=== PATIENT | male | born 1975 | race Caucasian/White ===

== ENCOUNTER → 2018-05-29 09:27 | Outpatient (CLI) | payer OTHER, SELFPAY ==
[2018-05-29 11:27] LABS: ALB/GLOB Ratio 0.9 RATIO (0.9-2.4); AST(SGOT) 22 U/L (15-37); Alanine Aminotransfer ALT/SGPT 56 U/L (16-61); Albumin, Serum 3.6 g/dL (3.2-5.0); Alkaline Phosphatase 81 U/L (45-117); Anion Gap 7 (5-15); BUN 13 mg/dL (7-18); BUN/Creat Ratio 15.6 RATIO (10-20); Calcium,Total 8.3 mg/dL (8.5-10.1); Chloride 107 mmol/L (98-107); Cholesterol 136 mg/dL (200); Creatinine, Serum 0.84 mg/dL (0.70-1.30); EST Glomerular Filtration Rate 107 mL/min (>60); Est Glom Filt Rate - Afr Amer 130 mL/min (>60); Glucose 95 mg/dL (74-106); High Density Lipoprotein 42 mg/dL; Potassium 4.4 mmol/L (3.5-5.1); Protein, Total 7.6 g/dL (6.4-8.2); Sodium Level 141 mmol/L (136-145); Triglycerides 57 mg/dL; Very Low Density Lipoprotein 11 mg/dL (5-40)
== END ==
PROVIDERS: Family Provider Family Medicine; PCP Family Medicine; Visit Provider Family Medicine
DX: R73.01 Impaired fasting glucose (principal)
CPT/HCPCS: 36415; 80053; 80061

== ENCOUNTER → 2018-12-08 13:49 | Outpatient (CLI) | payer OTHER, SELFPAY ==
[2018-12-08 15:12] LABS: Absolute Lymphocyte Count 3.22 X10^3/ul (0.83-4.51); Absolute Neutrophil Count 6.6 X10^3/uL (2.0-7.7); Basophil# 0.06 X10^3/uL; Basophil% 0.5 % (0-1); Eosinophil# 0.19 X10^3/uL; Eosinophils% 1.7 % (0-5); Hemoglobin 14.5 g/dl (13.0-16.5); Lymphocyte # 3.22 X10^3/ul (4.0); Lymphocyte % 29.2 % (19-41); Mean Corpuscular Hgb 29.3 pg (27.0-32.0); Mean Corpuscular Volume 88.9 fL (80-94); Mean Platelet Vol. 9.6 fl (6.2-12.0); Monocyte# 0.93 X10^3/uL; Monocyte% 8.4 % (0-10); Neutrophil # 6.61 X10^3/uL (2.7-7.7); Platelet Count 246 K/mm3 (150-450); RBC Distribution Width CV 14.2 % (11.6-14.6); RBC Distribution Width SD 46.1 fl (35.1-43.9); Red Blood Count 4.95 M/mm3 (4.6-6.2)
[2018-12-08 15:13] LABS: POSITIVE COUNT NO; POSITIVE DIFFERENTIAL NO; POSITIVE MORPHOLOGY NO
[2018-12-08 15:33] LABS: Vitamin B12 664 pg/mL (211-911)
[2018-12-08 15:44] LABS: Anion Gap 5 (5-15); BUN 14 mg/dL (7-18); Calcium,Total 8.8 mg/dL (8.5-10.1); Chloride 109 mmol/L (98-107); Creatinine, Serum 0.88 mg/dL (0.70-1.30); EST Glomerular Filtration Rate 101 mL/min (>60); Est Glom Filt Rate - Afr Amer 123 mL/min (>60); Glucose 88 mg/dL (74-106); Potassium 4.5 mmol/L (3.5-5.1); Sodium Level 142 mmol/L (136-145)
== END ==
PROVIDERS: Family Provider Family Medicine; PCP Family Medicine; Referring Provider Family Medicine; Visit Provider Family Medicine
DX: I10 Essential (primary) hypertension (principal); R53.83 Other fatigue
CPT/HCPCS: 36415; 80048; 82306; 82607; 84403; 84443; 85025

== ENCOUNTER → 2019-06-08 14:04 | Outpatient (CLI) | payer OTHER, SELFPAY ==
[2019-06-08 16:10] LABS: Vitamin D,25 Hydroxy 61.9 ng/mL (29.95-100.01)
== END ==
PROVIDERS: Family Provider Family Medicine; PCP Family Medicine; Referring Provider Family Medicine; Visit Provider Family Medicine
DX: E55.9 Vitamin D deficiency, unspecified (principal)
CPT/HCPCS: 36415; 82306

== ENCOUNTER → 2020-06-06 14:15 | Outpatient (CLI) | payer OTHER, SELFPAY ==
[2020-06-06 18:10] LABS: Vitamin D,25 Hydroxy 45.9 ng/mL
[2020-06-06 18:19] LABS: ALB/GLOB Ratio 0.9 RATIO (0.9-2.4); AST(SGOT) 28 U/L (15-37); Alanine Aminotransfer ALT/SGPT 75 U/L (16-61); Albumin, Serum 3.7 g/dL (3.2-5.0); Alkaline Phosphatase 82 U/L (45-117); Anion Gap 8 (5-15); BUN 14 mg/dL (7-18); Calcium,Total 8.9 mg/dL (8.5-10.1); Chloride 103 mmol/L (98-107); Cholesterol 130 mg/dL (200); Creatinine, Serum 0.82 mg/dL (0.70-1.30); EST Glomerular Filtration Rate 108 mL/min (>60); Est Glom Filt Rate - Afr Amer 131 mL/min (>60); Globulin 4.2 g/dL (2.2-4.2); Glucose 84 mg/dL (74-106); High Density Lipoprotein 52 mg/dL; Protein, Total 7.9 g/dL (6.4-8.2); Sodium Level 137 mmol/L (136-145); Triglycerides 79 mg/dL; Very Low Density Lipoprotein 16 mg/dL (5-40)
== END ==
PROVIDERS: PCP Family Medicine; Referring Provider Family Medicine; Visit Provider Family Medicine
DX: I10 Essential (primary) hypertension (principal); E55.9 Vitamin D deficiency, unspecified
CPT/HCPCS: 36415; 80053; 80061; 82306

== ENCOUNTER 2020-07-15 16:49 | Emergency (ER) | payer OTHER, SELFPAY ==
[2020-07-15 16:50] VITALS: BP 150/84; PULSE 90; RESP 17; TEMP 36.6; O2SAT 99; BMI 36.2
--- NOTE | 2020-07-15 17:01 | RAD_ITS ---
STUDY: X-RAY - RIGHT HAND REASON FOR EXAM: Male, 45 years old. fall, pain TECHNIQUE: 3 view(s) of the hand. COMPARISON: None. FINDINGS: Normal radiocarpal articulation. Normal distal radioulnar joint. Normal visualized carpal bones. Normal carpal articulations Normal carpometacarpal articulation of the thumb. Normal second through fifth carpometacarpal joints. Normal metacarpi. Normal metacarpophalangeal joint of the thumb. Normal interphalangeal joint of the thumb. Normal proximal and distal phalanges of the thumb. Normal metacarpophalangeal joints of the second through fifth fingers. Normal proximal and distal interphalangeal joints of the second through fifth fingers. Normal phalanges of the second through fifth fingers. The soft tissue structures are unremarkable. RAD/Hand Min 3 Views IMPRESSION: Normal x-ray examination of the hand. Electronically Signed: Juanpablo Douglas, at 17:46 EST Tel , Service support ,
[2020-07-15] MEDS: Acetaminophen 500 MG Tablet 1000 MG PO (17:15)
--- NOTE | 2020-07-15 17:35 | RAD_ITS ---
STUDY: X-RAY - RIGHT RADIUS AND ULNA REASON FOR EXAM: Male, 45 years old. Fall trauma pain TECHNIQUE: 2 view(s) of the forearm. COMPARISON: None. FINDINGS: Radius and ulna are intact and located. Mineralization is normal. Soft tissues are unremarkable. RAD/Forearm 2 Views IMPRESSION: 1. Unremarkable forearm. Electronically Signed: Juanpablo Douglas, at 18:14 EST Tel , Service support ,
--- NOTE | 2020-07-15 17:55 | ED.VISSUMM ---
- ER Visit Summary Date of Service: 07/15/20 Chief Complaint: Laceration History of Present Illness: The patient is a [address] Smith. He reports that just prior to coming emergency department he with carrying a piece of wood with nails in it. He lost his balance and fell approximately 2 feet and suffered a laceration to his right hand. He is right-hand dominant. He reports he has a sharp pain Zeta 10 at worst and 4-10 currently. Is worsened by movement of his hand and relieved by rest. He denies any blow to the head or loss of consciousness. No neck, back, shoulder pain. No hip pain. Physical Examination: Vitals: Stable. Afebrile. Neck: No vertebral tenderness. Full ROM without difficulty. Cleared by NEXUS criteria. Back: No vertebral tenderness. General: A&O x 3. NAD. Cardiovascular exam: Regular rate and rhythm, no murmur, rub or gallop. Respiratory exam: Chest nontender. No crepitus. Clear to auscultation bilaterally. No wheezes or stridor. Abdominal exam: Soft, nontender, nondistended, normal bowel sounds. No pain in RUQ or LUQ specifically. No peritoneal signs. Extremity: Mild tenderness palpation of the anterior surface of his right distal radius. There is no deformity, soft tissue swelling, or contusion. He is 1.5 cm irregular laceration over the thenar eminence that extends to saw subcutaneous fat only. There is no surrounding erythema or hematoma. No active bleeding. He is neuro vas intact distal this. Test Results: X-ray of his right hand and forearm are negative. Emergency Department Course and Treatment: Patient was given Tylenol for pain. I had a prolonged discussion with him about treatment options. He is opted to let this heal by secondary intention. I think that is a reasonable course of action. Was cleansed and a dressing was placed. Treatment Plan: Patient will be discharged with wound care instructions. Instructed to follow-up with his primary care physician 1 week if not improving. Return to the emergency department for any worsening symptoms. Disposition: To home in improved and stable condition. Impression: 1. Laceration right hand, 1.5 cm, not repaired. 2. Fall. This note was generated with [employer]ring [employer]ation software. It may contain incorrect words, spelling, and punctuation that were not noted in review of the chart prior to signing ED Disposition - Plan for ED Patient: Instructions: ED Wound Care Referrals: Lazaro Santamaria MD [Primary Care Provider] - 1 Week if not improving
[2020-07-15 18:24] VITALS: RESP 18
== END 2020-07-15 18:24 | disposition home or self-care (01) ==
PROVIDERS: Emergency Provider Emergency Medicine; PCP Family Medicine
DX: S61.411A Laceration without foreign body of right hand, initial encounter (principal); W17.89XA Other fall from one level to another, initial encounter; Y93.89 Activity, other specified; Y92.9 Unspecified place or not applicable; Y99.9 Unspecified external cause status; W45.8XXA Other foreign body or object entering through skin, initial encounter; I10 Essential (primary) hypertension; Z79.899 Other long term (current) drug therapy
CPT/HCPCS: 73090; 73130; 99282

== ENCOUNTER → 2021-03-15 14:09 | Outpatient (CLI) | payer BC, SELFPAY ==
[2021-03-15 21:02] LABS: Anion Gap 9 (5-15); BUN 16 mg/dL (7-18); BUN/Creat Ratio 18.7 RATIO (10-20); Chloride 106 mmol/L (98-107); Cholesterol 138 mg/dL (200); Creatinine, Serum 0.86 mg/dL (0.70-1.30); EST Glomerular Filtration Rate 103 mL/min (>60); Est Glom Filt Rate - Afr Amer 125 mL/min (>60); Glucose 82 mg/dL (74-106); High Density Lipoprotein 46 mg/dL; Potassium 3.9 mmol/L (3.5-5.1); Sodium Level 139 mmol/L (136-145); Triglycerides 62 mg/dL; Very Low Density Lipoprotein 12 mg/dL (5-40)
[2021-03-15 21:27] LABS: Vitamin D,25 Hydroxy 49.4 ng/mL
== END ==
PROVIDERS: PCP Family Medicine; Referring Provider Family Medicine; Visit Provider Family Medicine
DX: Z13.1 Encounter for screening for diabetes mellitus (principal); Z13.220 Encounter for screening for lipoid disorders; E55.9 Vitamin D deficiency, unspecified
CPT/HCPCS: 36415; 80048; 80061; 82306

== ENCOUNTER → 2022-04-30 | Outpatient (CLI) | payer BC, SELFPAY ==
[2022-04-30 16:08] LABS: ALB/GLOB Ratio 0.8 RATIO (0.9-2.4); AST(SGOT) 19 U/L (15-37); Alanine Aminotransfer ALT/SGPT 61 U/L (16-61); Albumin, Serum 3.5 g/dL (3.2-5.0); Alkaline Phosphatase 74 U/L (45-117); Anion Gap 7 (5-15); BUN 13 mg/dL (7-18); BUN/Creat Ratio 15.4 RATIO (10-20); Chloride 107 mmol/L (98-107); Cholesterol 114 mg/dL (200); Creatinine, Serum 0.84 mg/dL (0.70-1.30); EST Glomerular Filtration Rate 104 mL/min (>60); Est Glom Filt Rate - Afr Amer 126 mL/min (>60); Globulin 4.2 g/dL (2.2-4.2); Glucose 89 mg/dL (74-106); High Density Lipoprotein 45 mg/dL; Magnesium 2.2 mg/dL (1.6-2.6); Potassium 4.3 mmol/L (3.5-5.1); Protein, Total 7.7 g/dL (6.4-8.2); Sodium Level 141 mmol/L (136-145); Triglycerides 68 mg/dL; Very Low Density Lipoprotein 14 mg/dL (5-40)
== END | disposition home or self-care (01) ==
LOC: MFPLAB 13:44
PROVIDERS: PCP Family Medicine; Visit Provider Family Medicine
DX: R73.01 Impaired fasting glucose (principal); I48.91 Unspecified atrial fibrillation
CPT/HCPCS: 36415; 80053; 80061; 83735; 84443

== ENCOUNTER → 2022-07-24 | Outpatient (CLI) | payer BC, SELFPAY | END | disposition home or self-care (01) | PROVIDERS: PCP Family Medicine; Visit Provider Family Medicine | DX: J02.0 Streptococcal pharyngitis (principal) | CPT/HCPCS: 87070; 87077 ==

== ENCOUNTER 2022-09-09 07:36 | Day surgery (SDC) | payer BC, SELFPAY ==
[2022-09-09] VITALS (7 sets, daily range): BP systolic 99–133; BP diastolic 51–77; PULSE 65–77; RESP 16–18; TEMP 36.4–37.3; O2SAT 95–100; BMI 35.9
[2022-09-09] MEDS: Lactated Ringers 1,000 ML 15 ML IV (08:07)
--- NOTE | 2022-09-09 09:00 | COLBX_PTH ---
PATIENT: MYA JENKINS LOC: EN U#:[id number] AGE/SX: 47/M ROOM: RE09/09/[address]: Dr. Melina Rehman MD : 1975 BED: DIS: 09/09/2022 SPEC #: [id number] RECD: 09/09/22 11:03 STATUS: SAVANNA CHELSEA #: [id number] JUAN: 09/09/22 09:[address]: Melina Rehman DEPT: SURGICAL PATHOLOGY RECD BY: Celina Lepe ENTERED: 09/09/22 13:23 SP TYPE: COLON BX OTHR DR: Dr. Jimmie Santamaria MD Tissues: Sigmoid colon biopsy Procedures: Surgery Specimen Level IV HEADER OPERATION: Colonoscopy ? open access (MAC), polypectomy PRE-OP DIAGNOSIS: Screening, umbilical hernia TISSUE SUBMITTED: Sigmoid polyp at 33 cm (1 x 1 cm) MICROSCOPIC DIAGNOSIS Sigmoid colon polyp at 33 cm, polypectomy: Tubular adenoma. See comment. AM:rg 09/10/2022 COMMENT The stalk margin is free of adenomatous change. MICROSCOPIC DESCRIPTION Slides are reviewed. GROSS DESCRIPTION Received in fixative is one container labeled with the patient's name and designated sigmoid polyp at 33 cm. The specimen consists of a pink-red polyp measuring 1 x 0.9 x 0.5 cm. The presumed base is inked. Pedicle measures 0.5 cm in length and 0.5 cm in diameter. The polyp is bisected and submitted entirely in one cassette. / SJ:keven 09/09/2022 TC:1 CPT: 70398
--- NOTE | 2022-09-09 09:26 | HP.PCM_ITS ---
[facility] - General General Date of Admission: 09/09/22 HPI Narrative MYA JENKINS, is a 47 M who presents for screening colonoscopy. Patient never had previous colonoscopy. Patient denies any family history of colon cancer. Patient has bowel moods daily denies any blood. Patient denies any current abdominal pain/nausea/vomiting/reflux. [facility] Medical History (Updated 09/09/22 @ 09:[address] Melina Rehman MD) Afib Alcohol use Back pain Cardiology follow-up encounter CPAP (continuous positive airway pressure) dependence History of echocardiogram History of edema HTN (hypertension) Reducible umbilical hernia Shortness of breath on exertion Syncope Vertigo Wears glasses Home Medications lisinopril 10 mg tablet 10 mg PO QHS 07/15/20 [History Last Taken Unknown] metoprolol tartrate 25 mg tablet 25 mg PO DAILY 07/15/20 [History Last Taken 09/09/22 05:30] aspirin 81 mg tablet,delayed release 81 mg PO DAILY 07/16/22 [History Last Taken Unknown] cholecalciferol (vitamin D3) 50 mcg (2,000 unit) capsule 50 mcg PO DAILY 07/16/22 [History Last Taken 09/09/22 05:30] Allergy/AdvReac Type Severity Reaction Status Date / Time No Known Allergies Allergy Verified 09/09/22 08:01 Family History (Updated 07/16/22 @ 10:25 by Lenora Adorno) Grandfather Prostate cancer Skin cancer Myocardial infarction Father History of mitral valve repair Afib Diabetes Mother Arrhythmia Arthritis Surgical History (Updated 09/04/22 @ 11:43 by Preethi Coy) History of wisdom tooth extraction Personal history of prior ablation treatment Social History (Updated 07/16/22 @ 10:28 by Lenora Adorno) household members: spouse 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 current occupation: [employer], [employer] Smoking Status: Never smoker what type of physical activity do you participate in: other details: Active on farm and work Past Medical/Surgical History Planned Operation Planned Operative Procedure/s: CSCOPE OA Previous Hospitalizations/Surgeries HX Hospitalizations: No Any Problems With Anesthesia: No You/Your Family Experience Fever (Hyperthermia) With Anes: No Cholinesterase deficiency: No Cardiovascular Hx Hypertension: Yes (CONTROLLED WITH MED) Respiratory Hx Chronic Obstructive Pulmonary Disease (COPD): No Hx Asthma: No Hx Emphysema: No Hx Sleep Apnea: Yes CPAP: Yes BIPAP: No Hx Respiratory Tract Infection/Cold (presently): No Result (for STOP score): Positive Smoking Status: Never smoker Neurological Does patient have nerve stimulator: No Blood Disorder Hx High Cholesterol: Yes Reproduction : No Endocrine Hx Diabetes: No Miscellaneous Recent Exposure to Contagious Disease: No Allergies No Known Allergies Allergy (Verified 09/09/22 08:01) Discharge Is Pt Admitted From a Long-Term, or a Senior Living: No After D/C, Where Do you Plan to Go: Return Home Vital Signs Vital Signs Vital Signs: 09/09/22 08:03 09/09/22 08:03 Temperature 97.6 F L Temperature Source Temporal Pulse Rate 69 Respiratory Rate 18 Respiratory Pattern Normal Blood Pressure 133/77 H Blood Pressure Mean 95 Blood Pressure Source Monitor Blood Pressure Position Sitting Blood Pressure Location Right Arm Pulse Ox 100 Oxygen Delivery Method Room Air Weight Weight: 257 lb 15.053 oz Body Mass Index (BMI) 35.9 Physical Exam Const alert, oriented x3 and no apparent distress HEENT normocephalic and head/scalp atraumatic Resp normal respiratory effort Cardio regular rate GI soft to palpation and non-tender; Negative for non-distended Palpation: hernia umbilical (Umbilical, tender, did not attempt to reduce); Negative for guarding Extremity no clubbing, cyanosis or edema Neuro CN's II-XII intact bilaterally Psych mental status grossly normal Assessment & Plan Assessment/Plan (1) Encounter for screening for malignant neoplasm of colon: (2) Umbilical hernia without mention of obstruction or gangrene: Surgery Risks - Colonoscopy Risks Include but are not Limited To: Risks include but are not limited to: Bleeding, perforation requiring further surgery, inability to complete colonoscopy requiring barium enema.
--- NOTE | 2022-09-09 10:24 | OP.COLON_ITS ---
Patient Name: Alo Clayton Procedure Date: 09/09/2022 9:29 AM Date of : 1975 Age: 47 Procedure: Colonoscopy Indications: Screening for colorectal malignant neoplasm Providers: Mleina Rehman MD Medicines: Monitored Anesthesia Care Patient Profile: This is a 47 year old male. Last Colonoscopy: none. The patient's first colonoscopy is today. Complications: No immediate complications. Procedure: Pre-Anesthesia Assessment: - Prior to the procedure, a History and Physical was performed, and patient medications and allergies were reviewed. The patient's tolerance of previous anesthesia was also reviewed. The risks and benefits of the procedure and the sedation options and risks were discussed with the patient. All questions were answered, and informed consent was obtained. Prior Anticoagulants: The patient has taken no previous anticoagulant or antiplatelet agents. ASA Grade Assessment: Per anesthesia. After reviewing the risks and benefits, the patient was deemed in satisfactory condition to undergo the procedure. After I obtained informed consent, the scope was passed under direct vision. Throughout the procedure, the patient's blood pressure, pulse, and oxygen saturations were monitored continuously. The Colonoscope was introduced through the anus and advanced to the cecum, identified by appendiceal orifice and ileocecal valve. The colonoscopy was performed without difficulty. The patient tolerated the procedure well. The quality of the bowel preparation was good. Scope In: 9:41:41 AM Scope Withdrawal Time 0 hours 22 minutes 59 seconds Scope Out: 10:12:24 AM Total Procedure Duration Time 0 hours 30 minutes 43 seconds Findings: The perianal and digital rectal examinations were normal. A 15 mm polyp was found in the sigmoid colon at 33cm with normal appearing stalk. The polyp was pedunculated. The polyp was removed with a hot snare. Resection and retrieval were complete. Area was successfully injected with 1 mL Jennie ink for tattooing. The exam was otherwise without abnormality on direct and retroflexion views. Impression: - One 15 mm polyp in the sigmoid colon, removed with a hot snare. Resected and retrieved. Injected. - The examination was otherwise normal on direct and retroflexion views. Recommendation: - Discharge patient to home. - Resume previous diet. - Continue present medications. - Await pathology results. - Repeat colonoscopy 1-2 years for surveillance based on pathology results. Procedure Code(s): --- Professional --- 31089, PT, Colonoscopy, flexible; with removal of tumor(s), polyp(s), or other lesion(s) by snare technique 16975, Colonoscopy, flexible; with directed submucosal injection(s), any substance Diagnosis Code(s): --- Professional --- Z12.11, Encounter for screening for malignant neoplasm of colon D12.5, Benign neoplasm of sigmoid colon CPT copyright 2017 [employer]. All rights reserved. The codes documented in this report are preliminary and upon orthopedic coder review may be revised to meet current compliance requirements. MD Melina Mccain MD 09/09/2022 10:24:18 AM This report has been signed electronically. Number of Addenda: 0 Note Initiated On: 09/09/2022 9:29 AM
--- NOTE | 2022-09-09 10:25 | OP.CCLET_ITS ---
09/09/2022 Lazaro Santamaria [address] [place] [address] Re : Colonoscopy procedure for Alo Clayton Dear Dr. Santamaria This procedure was performed on Friday, September 09, 2022. My impressions and recommendations are as follows: Impressions : - One 15 mm polyp in the sigmoid colon, removed with a hot snare. Resected and retrieved. Injected. - The examination was otherwise normal on direct and retroflexion views. Recommendations : - Discharge patient to home. - Resume previous diet. - Continue present medications. - Await pathology results. - Repeat colonoscopy 1-2 years for surveillance based on pathology results. My findings are described in the full procedure note, which is enclosed. If I can be of further assistance, please feel free to contact me at Doctor phone number(s): , Work: . Sincerely, MD Melina Mccain MD 09/09/2022 10:24:18 AM This report has been signed electronically.
== END 2022-09-09 10:58 | disposition home or self-care (01) ==
LOC: EN 07:38 → AC 07:41
PROVIDERS: PCP Family Medicine; Referring Provider Surgery; Visit Provider Surgery
PROC: 0DJD8ZZ Inspection of Lower Intestinal Tract, Via Natural or Artificial Opening Endoscopic (ICD-10-PCS; CPT 45378; principal; 2022-09-09 08:55)
DX: Z12.11 Encounter for screening for malignant neoplasm of colon (principal); I48.91 Unspecified atrial fibrillation; K42.9 Umbilical hernia without obstruction or gangrene; I10 Essential (primary) hypertension; D12.5 Benign neoplasm of sigmoid colon; Z79.899 Other long term (current) drug therapy; Z79.82 Long term (current) use of aspirin
CPT/HCPCS: 45385; 45381; 88305; J7120; A4648; J2405

== ENCOUNTER → 2023-03-20 | Outpatient (CLI) | payer BC, SELFPAY ==
[2023-03-20 18:54] LABS: ALB/GLOB Ratio 0.9 RATIO (0.9-2.4); AST(SGOT) 25 U/L (15-37); Alanine Aminotransfer ALT/SGPT 67 U/L (16-61); Albumin, Serum 3.6 g/dL (3.2-5.0); Alkaline Phosphatase 77 U/L (45-117); Anion Gap 6 (5-15); BUN 13 mg/dL (7-18); BUN/Creat Ratio 14.3 RATIO (10-20); Calcium,Total 9.1 mg/dL (8.5-10.1); Chloride 108 mmol/L (98-107); Cholesterol 135 mg/dL (200); Creatinine, Serum 0.91 mg/dL (0.70-1.30); EST Glomerular Filtration Rate 95 mL/min (>60); Est Glom Filt Rate - Afr Amer 115 mL/min (>60); Globulin 4.2 g/dL (2.2-4.2); Glucose 94 mg/dL (74-106); High Density Lipoprotein 54 mg/dL; Potassium 4.2 mmol/L (3.5-5.1); Protein, Total 7.8 g/dL (6.4-8.2); Sodium Level 139 mmol/L (136-145); Triglycerides 64 mg/dL; Very Low Density Lipoprotein 13 mg/dL (5-40)
== END | disposition home or self-care (01) ==
LOC: MFPLAB 14:56
PROVIDERS: PCP Family Medicine; Visit Provider Family Medicine
DX: R73.01 Impaired fasting glucose (principal)
CPT/HCPCS: 36415; 80053; 80061; 83036

== ENCOUNTER → 2023-09-10 | Outpatient (CLI) | payer BC, SELFPAY ==
[2023-09-10 13:48] LABS: Bacteria 0 SEEN /hpf (None Seen); Mucous, Urine 0 SEEN /hpf (<or=2+); Red Blood Cells-Urine 0 SEEN /hpf (0-5); Squamous Epithelial Cells - UA 0 SEEN /hpf (0-5); White Blood Cells 0 SEEN /hpf (0-5)
--- OUTSIDE RECORDS SUMMARY | 2023-09-10 14:07 | XMS RPT_ITS | CCD ---
Author Name Unknown Address [email or web address] [place] [address] Organization [facility] Care Team Providers Care General Farmworker Name Role Phone Jimmie Tabares Unavailable Keira Orozco Unavailable Unavailable Hina COWART, Adrien Gu Primary Care Provider Adrien Tabares MD Primary Care Provider ADRIEN TABARES Primary Care Unavailabl e ADRIEN TABARES Primary Care Unavailabl e Medications Current Medications Medication Drug Class(es) Dates Sig (Normalized) Sig (Original) amoxicillin 500 mg oral tablet (3 sources) Penicillin-class Antibacterial Start: 06-16-2022 End: 06-26-2022 take 1 tablet by mouth twice daily Amoxicillin 500 mg tablet Take 1 tablet by mouth twice daily for 10 days. 20 tablet 0 06/16/2022 06/26/2022 Active Completed/Discontinued Medications Medication Drug Class(es) Dates Sig (Normalized) Sig (Original) lisinopril 10 mg oral tablet (3 sources) Angiotensin Converting Enzyme Inhibitor lisinopril (ZESTRIL, PRINIVIL) 10 mg tablet Take 10 mg by mouth. 0 Active Problems Problem Classification Problem Date Documented Da te Episodic/Chronic Other upper respiratory infections (4 sources) Acute sinusitis; Translations: [Acute sinusitis, unspecified] 11-28-2021 Episodic Otitis media and related conditions (1 source) Acute suppurative otitis media without spontaneous rupture of ear drum; Translations: [Acute suppurative otitis media without spontaneous rupture of ear drum, right ear] Episodic Unclassified (2 sources) SINUS SORE THROAT CONGESTED 11-28-2021 Results Test Name Value Interpretation Reference Range Facil ity Vital Signs Date Time Vital Sign Value Performing Clinician Facility 06-16-2022 10:58-0400 Body temperature 98.2 [degF] Nafisa Welch APRN.SOLUTION SPECIALIST Work Phone: [facility] 06-16-2022 10:58-0400 Body weight 117.48 kg Nafisa Welch APRN.SOLUTION SPECIALIST Work Phone: [facility] 06-16-2022 10:58-0400 Diastolic blood pressure 92 mm[Hg] Nafisa Welch APRN.SOLUTION SPECIALIST Work Phone: [facility] 06-16-2022 10:58-0400 Heart rate 81 /min Nafisa Welch APRN.SOLUTION SPECIALIST Work Phone: [facility] 06-16-2022 10:58-0400 Respiratory rate 20 /min Nafisa Welch APRN.SOLUTION SPECIALIST Work Phone: [facility] 06-16-2022 10:58-0400 SaO2% (BldA) [Mass fraction] 98 % Nafisa Welch APRN.SOLUTION SPECIALIST Work Phone: [facility] 06-16-2022 10:58-0400 Systolic blood pressure 146 mm[Hg] Nafisa Welch [employer].SOLUTION SPECIALIST Work Phone: [facility] 05-13-2022 17:04-0400 Body temperature 102.79 [degF] Jax Del Real BETTING [employer]KS.SOLUTION SPECIALIST Work Phone: [facility] 05-13-2022 17:04-0400 Body weight 116.12 kg Jax Del Real [employer].SOLUTION SPECIALIST Work Phone: [facility] 05-13-2022 17:04-0400 Diastolic blood pressure 84 mm[Hg] Jax Del Real [employer].SOLUTION SPECIALIST Work Phone: [facility] 05-13-2022 17:04-0400 Heart rate 120 /min Jax Del Real [employer].SOLUTION SPECIALIST Work Phone: [facility] 05-13-2022 17:04-0400 Respiratory rate 18 /min Jax Del Real [employer].SOLUTION SPECIALIST Work Phone: [facility] 05-13-2022 17:04-0400 SaO2% (BldA) [Mass fraction] 99 % Jax Del Real APRN.MESERET Work Phone: [facility] 05-13-2022 17:04-0400 Systolic blood pressure 126 mm[Hg] Jax Del Real APRN.CNP Work Phone: [facility] Encounters Encounter Date Encounter Type Care Provider Facility Start: 06-16-2022 End: 06-16-2022 ambulatory [facility] Facility:[facility] Start: 06-16-2022 End: 06-16-2022 Patient encounter procedure Nafisa Welch APRN.MESERET Work Phone: [facility] Procedures Date Procedure Procedure Detail Performing Clinician Start: 06-16-2022 STREP A MOLECULAR (POC) Nafisa Welch APRN.CNP Work Phone: Start: 05-13-2022 STREP A MOLECULAR (POC) Jax Del Real APRN.CNP Work Phone: Plan of Treatment Date Care Activity Detail Author Start: 04-25-2022 Influenza vaccination INFLUENZA (#1) [facility] Start: 08-25-2021 DEPRESSION ASSESSMENT DEPRESSION ASS ESSMENT [facility] Start: 2021 COLOGUARD (FIT-DNA) COLOGUARD (FIT-D NA) [facility] Start: 2021 Colonoscopy COLONOSCOPY [facility] Start: 2021 COLORECTAL CANCER SCREENING COLORECTAL CANCER SCREENING [facility] Start: [address] COLONOGRAPHY [facility] Start: 2021 DIABETES SCREEN DIABETES SCREEN [facility] Start: 2021 FECAL OCCULT BLOOD FECAL OCCULT BLOO D [facility] Start: 2021 SIGMOIDOSCOPY SIGMOIDOSCOPY [facility] Start: 12-30-2020 COVID-19 VACCINE (2 - Booster for [place] series) COVID-19 VACCINE (2 - Booster for [place] series) [facility] Start: 2011 LIPID SCREEN LIPID SCREEN [facility] Start: 1995 Urine microalbumin profile DTAP,TDAP ,TD (1 - Tdap) [facility] Start: 1994 HEPATITIS C SCREENING HEPATITIS C SC PINKY [facility] Start: 1994 HIV SCREENING HIV SCREENING [facility] Start: 1988 Adult depression scr eening assessment DEPRESSION SCREENING [facility] Start: 1976 HEPATITIS B (1 of 3 - 3-dose series) HEPATITIS B (1 of 3 - 3-dose series) [facility] Payers Date Payer Category Payer Unknown 2020 Unknown [id number] Social History Date Type Detail Facility [facility] Tobacco smoking consumption unknown [facility] Start: 05-13-2022 Tobacco smoking status NHIS Never smoked tobacco [facility] Start: 05-13-2022 Tobacco use and exposure Smokeless tobacco non-user [facility] Start: 1976 Sex Assigned At Not on file C [facility] Start: 05-03-2022 End: 06-16-2022 Exposure to SARS-CoV-2 (event) Not sure [facility] Work Phone: Progress note 06-16-2022 Note Date & Type Note Facility 06-16-2022 Note HNO ID: [id number] Author: Nafisa Welch APRN.SOLUTION SPECIALIST Service: ? Author Type: Nurse Practitioner Type: Progress Notes Filed: 06/16/2022 11:16 AM Note Text: CC: Patient presents with: Sore Throat: X1 week, strep exposure HPI: Mya Jenkins is a 47 year old male who presents to the office with complaint of sore throat and ear symptoms for a week. Symptoms are worsening Associated symptoms includes sore throat. Denies nausea, vomiting , and diarrhea. Treatments tried include nothing so far. with no relief of symptoms. Sick contacts: unknown. History of asthma, frequent episodes of bronchitis, chronic bronchitis, bronchiectasis or COPD: No Smoker: No Seasonal/environmental allergies: No The ROS is otherwise negative. The patient's pmh, medications, allergies, and past visits are reviewed. PHYSICAL EXAM: BP 146/92 Pulse 81 Temp 36.8 ?C (98.2 ?F) Resp 20 Wt 117.5 kg (259 lb) SpO2 98% General appearance: alert, cooperative, pleasant, in no acute distress Head: Normocephalic Eyes: EOM's intact, conjunctiva pink and moist, no icterus, sclera white, non-injected Ears: Right ear: External ear/canal- Normal, TM - erythematous, bulging. Left ear: External ear/canal- Normal, TM - clear with good landmarks Oropharynx:moderate erythema, without exudates present Heart: Negative. RRR without obvious murmur, gallop, or rubs. No ectopy. Lungs: clear to auscultation, without rales or wheeze, good air exchange No past medical history on file. No past surgical history on file. ALLERGIES Patient has no known allergies. MEDICATIONS lisinopril (ZESTRIL, PRINIVIL) 10 mg tablet Take 10 mg by mouth. metoprolol tartrate, short acting, (LOPRESSOR) 25 mg tablet Take 25 mg by mouth. Amoxicillin 500 mg tablet Take 1 tablet by mouth twice daily for 10 days. No family history on file. Social History Tobacco Use Smoking status: Never Smokeless tobacco: Never ASSESSMENT/PLAN: 1. Sore throat - ICD9: 462, ICD10: J02.9 (primary diagnosis) - STREP A MOLECULAR (POC) - negative 2. Non-recurrent acute suppurative otitis media of right ear without spontaneous rupture of tympanic membrane - ICD9: 382.00, ICD10: H66.001 Amoxicillin twice a day for 10 days. Prescription instructions reviewed with patient as applicable. Potential red flag symptoms discussed with the patient. Reviewed appropriate action plan to take if red flag symptoms occur. Patient agreeable to treatment plan. Nafisa Welch APRN.[facility] Instructions 06-16-2022 Patient Instructions Note Date & Type Note [facility] 06-16-2022 Instructions Nafisa Welch APRN.[facility] - 06/16/2022 11:11 AM EDT Ear Infection The inside or outside of your ear can become infected. If your outer ear or ear canal is swollen and infected, you have an outer ear infection. Your ear may itch or be red and swollen. Your ear may hurt or have drainage as well. This infection happens if germs enter your ears and cause a problem. This is more likely to happen if you have a wound in your ear. It can also happen if there is something in your ear or if your ear is wet for a long time. You may have signs a few days after swimming. This is why outer ear infections are often called swimmers ear. Long-term outer ear infections may be caused by: Allergic reaction Skin problems, such as eczema or psoriasis Chronic middle ear infections What care is needed at home? Ask your doctor what you need to do when you go home. Make sure you ask questions if you do not understand what the doctor says. This way you will know what you need to do. Take your drugs as ordered by your doctor. Be sure to treat an infection right away. This will help to keep it from spreading to other parts of your ear. Heat may help ease your ear pain. If your doctor tells you to use heat, put a heating pad or hot water bottle on your ear for no more than 20 minutes at a time. Never go to sleep with a heating pad on as this can cause resendiz. What follow-up care is needed? Your doctor may ask you to make visits to the office to check on your progress. Be sure to keep these visits. What problems could happen? Very bad infection Hearing problems What can be done to prevent this health problem? Keep your ears dry: Use a bathing cap or ear plugs when swimming. Use a towel to dry your ears when they are wet. Do not swim in dirty or polluted water. Avoid getting soap or other items in your ears. Do not scratch your ears. Do not put swabs or other objects in your ears. When do I need to call the doctor? Signs of infection. These include a fever of 100.4 F (38 C) or higher, chills, very bad sore throat, ear or sinus pain. Signs get worse You feel pain and there is redness of the bone behind your ear Drugs you are taking are not working for you Health problem is not better or you are feeling worse Helpful tips Talk to your doctor to see if there are drops you can use to help prevent the growth of germs. Outer ear infections are not contagious, but need treatment. documented in this encounter [facility] History of Present illness Narrative 06-16-2022 Nafisa Welch APRN.MESERET - 06/16/2022 11:01 AM EDT Note Date & Type Note Facility 06-16-2022 History of Presen t illness Narrative CC: Patient presents with: Sore Throat: X1 week, strep exposure HPI: Mya Jenkins is a 47 year old male who presents to the office with complaint of sore throat and ear symptoms for a week. Symptoms are worsening Associated symptoms includes sore throat. Denies nausea, vomiting , and diarrhea. Treatments tried include nothing so far. with no relief of symptoms. Sick contacts: unknown. History of asthma, frequent episodes of bronchitis, chronic bronchitis, bronchiectasis or COPD: No Smoker: No Seasonal/environmental allergies: No The ROS is otherwise negative. The patient's pmh, medications, allergies, and past visits are reviewed. PHYSICAL EXAM: BP 146/92 Pulse 81 Temp 36.8 C (98.2 F) Resp 20 Wt 117.5 kg (259 lb) SpO2 98% General appearance: alert, cooperative, pleasant, in no acute distress Head: Normocephalic Eyes: EOM's intact, conjunctiva pink and moist, no icterus, sclera white, non-injected Ears: Right ear: External ear/canal- Normal, TM - erythematous, bulging. Left ear: External ear/canal- Normal, TM - clear with good landmarks Oropharynx:moderate erythema, without exudates present Heart: Negative. RRR without obvious murmur, gallop, or rubs. No ectopy. Lungs: clear to auscultation, without rales or wheeze, good air exchange No past medical history on file. No past surgical history on file. ALLERGIES Patient has no known allergies. MEDICATIONS lisinopril (ZESTRIL, PRINIVIL) 10 mg tablet Take 10 mg by mouth. metoprolol tartrate, short acting, (LOPRESSOR) 25 mg tablet Take 25 mg by mouth. Amoxicillin 500 mg tablet Take 1 tablet by mouth twice daily for 10 days. No family history on file. Social History Tobacco Use Smoking status: Never Smokeless tobacco: Never ASSESSMENT/PLAN: 1. Sore throat - ICD9: 462, ICD10: J02.9 (primary diagnosis) - STREP A MOLECULAR (POC) - negative 2. Non-recurrent acute suppurative otitis media of right ear without spontaneous rupture of tympanic membrane - ICD9: 382.00, ICD10: H66.001 Amoxicillin twice a day for 10 days. Prescription instructions reviewed with patient as applicable. Potential red flag symptoms discussed with the patient. Reviewed appropriate action plan to take if red flag symptoms occur. Patient agreeable to treatment plan. Nafisa Welch APRN.MESERET documented in this encounter [facility] Progress note 05-13-2022 Note Date & Type Note Facility 05-13-2022 Note HNO ID: [id number] Author: Jax Del Real APRN.CNP Service: ? Author Type: Nurse Practitioner Type: Progress Notes Filed: 05/13/2022 5:48 PM Note Text: Subjective HPI Non-toxic appearing patient presents to urgent care with a chief complaint of sore throat. Duration of symptoms 2 days. Associated symptoms sore throat, fever, nausea, and headache. Most bothersome symptom is body aches and sore throat. No known sick contacts. No OTC medication use recently. Did take acetaminophen this morning. This did help. Patient denies any trismus, difficulty swallowing, difficulty handling secretions, decreased range of motion of neck, vomiting, abdominal pain, visual changes, acute headache, cough, pleuritic pain, or change in bowel or bladder habits. Past medical history prescription medication use allergies reviewed. .Patient presents with: Fever: Body aches, ST, congestion x2 days History reviewed. No pertinent past medical history. History reviewed. No pertinent surgical history. ALLERGIES Patient has no known allergies. MEDICATIONS lisinopril (ZESTRIL, PRINIVIL) 10 mg tablet Take 10 mg by mouth. metoprolol tartrate, short acting, (LOPRESSOR) 25 mg tablet Take 25 mg by mouth. History reviewed. No pertinent family history. Social History Tobacco Use Smoking status: Never Smokeless tobacco: Never BP 126/84 Pulse 120 Temp (!) 39.3 ?C (102.8 ?F) Resp 18 Wt 116.1 kg (256 lb) SpO2 99% Hr 105 Review of Systems Constitutional: Positive for chills, fever and malaise/fatigue. HENT: Positive for congestion and sore throat. Negative for ear discharge, ear pain and sinus pain. Eyes: Negative for blurred vision, pain, discharge and redness. Respiratory: Negative for cough, hemoptysis, sputum production, shortness of breath, wheezing and stridor. Cardiovascular: Negative for chest pain. Gastrointestinal: Negative for abdominal pain, diarrhea, nausea and vomiting. Musculoskeletal: Positive for myalgias. Skin: Negative for itching and rash. Neurological: Negative for dizziness and headaches. Objective Physical Exam Constitutional: General: He is not in acute distress. Appearance: He is not diaphoretic. HENT: Head: Normocephalic. Jaw: No trismus, tenderness, swelling or pain on movement. Right Ear: Tympanic membrane, ear canal and external ear normal. Left Ear: Tympanic membrane, ear canal and external ear normal. Nose: Congestion present. Mouth/Throat: Lips: [place]. Mouth: Mucous membranes are moist. Pharynx: Oropharynx is clear. Uvula midline. Posterior oropharyngeal erythema present. No pharyngeal swelling, oropharyngeal exudate or uvula swelling. Tonsils: No tonsillar abscesses. 1+ on the right. 2+ on the left. Eyes: Conjunctiva/sclera: Conjunctivae normal. Pupils: Pupils are equal, round, and reactive to light. Cardiovascular: Rate and Rhythm: Regular rhythm. Tachycardia present. Heart sounds: Normal heart sounds. Pulmonary: Effort: Pulmonary effort is normal. No tachypnea, accessory muscle usage or respiratory distress. Breath sounds: Normal breath sounds. No stridor. No wheezing or rales. Abdominal: Palpations: Abdomen is soft. Tenderness: There is no abdominal tenderness. Musculoskeletal: Cervical back: Normal range of motion and neck supple. No rigidity or tenderness. Lymphadenopathy: Cervical: No cervical adenopathy. Skin: General: Skin is warm and dry. Neurological: Mental Status: He is alert and oriented to person, place, and time. ASSESSMENT/PLAN: 1. Pharyngitis, unspecified etiology - ICD9: 462, ICD10: J02.9 - STREP A MOLECULAR (POC) - COVID WITH FLUA+B, ROUTINE Strep test positive. Patient diagnosed with pharyngitis. Will be placed on amoxicillin. Patient was educated on supportive therapies. Patient will follow up with primary care provider as needed. Patient was instructed to immediately proceed to emergency room for any new, worsening, or symptoms lasting longer than anticipated. The patient's clinical presentation is otherwise unremarkable at this time. Based on exam and clinical finding, the patient is stable for discharge. Plan of care was discussed with patient. Patient verbalizes understanding and agrees to plan of care. This note was generated using [employer] software. It may contain errors in wording, punctuation, or spelling. Jax Del Real APRN.MESERET [facility] Instructions 05-13-2022 Patient Instructions Note Date & Type Note Facility 05-13-2022 Instructions Jax Del Real APRN.MESERET - 05/13/2022 5:20 PM EDT How to Manage Common Symptoms Associated with COVID for Adults Fever- Fever is a temperature over 100.4 F and can occur when the body is fighting an infection. To help treat a fever: Drink plenty of fluids and stay well hydrated. Eat small amounts of easy to digest food. Rest. Your body needs rest to recover, but getting up and moving around the house frequently is a good idea. You should try to continue doing your normal daily activities (bathing, toileting, grooming, cooking), though you will probably feel tired, and need to rest often. Avoid any heavy activity or exercise, as this will increase your body temperature. Dress in light clothing and stay covered in a light sheet. Keep the room temperature cool. Take a slightly warm (not cold or cool) bath, or apply damp washcloths to the forehead and wrists. Cough- Cough is a common symptom associated with COVID and can be bothersome. To help treat a cough: Stay well hydrated. Try warm water or tea with lemon and/or honey to help soothe the cough. Use a humidifier to add moisture to the air. Try a product with menthol, like a cough drop or a rub for your chest such as Vicks, which can help reduce cough. Try cough drops. Avoid smoking and other strong odors or perfumes. Try breathing exercises to keep your lungs open and clear. Take a big deep breath through your nose and hold for 5 seconds before slowly releasing. Repeat frequently, while you are awake. Congestion- Runny nose or nasal congestion can occur with COVID. Treatment can help relieve symptoms: Try OTC nasal saline spray, or nasal saline rinse to relieve mucus congestion. Nasal strips can help keep nasal passages open, to increase airflow. Elevating your head with an extra pillow in bed can help reduce congestion. Using a humidifier can increase moisture in the air, and make breathing easier. Sore Throat- Another common symptom with COVID, can be managed at home by: Stay well hydrated. Gargle with salt water - mix teaspoon salt with 1 cup of warm water and gargle. This helps to loosen mucus in the back of the throat and may reduce discomfort. Try ice chips, popsicles or lozenges to soothe the throat. Nausea/Vomiting/Diarrhea- These are common symptoms, and staying hydrated is most important. If you are nauseous or vomiting, start with small sips of water every 10-15 minutes and increase as tolerated. You can try sucking an ice cube too. If tolerating, you can try pedialyte or Gatorade, or flat sprite or eliceo-jarred. Start slowly and increase as you are able to. Instead of meals, try smaller, more frequent snacks. Try eating bland foods like crackers, toast, rice, and applesauce. Avoid spicy, greasy or fried foods and dairy containing foods. Even if you aren't feeling hungry due to lack of smell or taste, it is important to try to take in some food when you are able. After drinking and eating, rest in an upright position for up to two hours as needed to help decrease nauseous feelings. Try closing your eyes, avoid moving and watching TV. Avoid strong odors that can make you feel more nauseated. When to seek emergency medical attention Look for emergency warning signs for COVID-19. If having any of these symptoms, seek emergency medical care immediately: Trouble breathing Persistent pain or pressure in the chest New confusion Inability to wake or stay awake Bluish lips or face *This list is not all possible symptoms. Please call your medical provider for any other symptoms that are severe or concerning to you. documented in this encounter [facility] History of Present illness Narrative 05-13-2022 Jax Del Real APRN.CNP - 05/13/2022 5:10 PM EDT Note Date & Type Note Facility 05-13-2022 History of Presen t illness Narrative Subjective HPI Non-toxic appearing patient presents to urgent care with a chief complaint of sore throat. Duration of symptoms 2 days. Associated symptoms sore throat, fever, nausea, and headache. Most bothersome symptom is body aches and sore throat. No known sick contacts. No OTC medication use recently. Did take acetaminophen this morning. This did help. Patient denies any trismus, difficulty swallowing, difficulty handling secretions, decreased range of motion of neck, vomiting, abdominal pain, visual changes, acute headache, cough, pleuritic pain, or change in bowel or bladder habits. Past medical history prescription medication use allergies reviewed. .Patient presents with: Fever: Body aches, ST, congestion x2 days History reviewed. No pertinent past medical history. History reviewed. No pertinent surgical history. ALLERGIES Patient has no known allergies. MEDICATIONS lisinopril (ZESTRIL, PRINIVIL) 10 mg tablet Take 10 mg by mouth. metoprolol tartrate, short acting, (LOPRESSOR) 25 mg tablet Take 25 mg by mouth. History reviewed. No pertinent family history. Social History Tobacco Use Smoking status: Never Smokeless tobacco: Never BP 126/84 Pulse 120 Temp (!) 39.3 C (102.8 F) Resp 18 Wt 116.1 kg (256 lb) SpO2 99% Hr 105 Review of Systems Constitutional: Positive for chills, fever and malaise/fatigue. HENT: Positive for congestion and sore throat. Negative for ear discharge, ear pain and sinus pain. Eyes: Negative for blurred vision, pain, discharge and redness. Respiratory: Negative for cough, hemoptysis, sputum production, shortness of breath, wheezing and stridor. Cardiovascular: Negative for chest pain. Gastrointestinal: Negative for abdominal pain, diarrhea, nausea and vomiting. Musculoskeletal: Positive for myalgias. Skin: Negative for itching and rash. Neurological: Negative for dizziness and headaches. Objective Physical Exam Constitutional: General: He is not in acute distress. Appearance: He is not diaphoretic. HENT: Head: Normocephalic. Jaw: No trismus, tenderness, swelling or pain on movement. Right Ear: Tympanic membrane, ear canal and external ear normal. Left Ear: Tympanic membrane, ear canal and external ear normal. Nose: Congestion present. Mouth/Throat: Lips: [place]. Mouth: Mucous membranes are moist. Pharynx: Oropharynx is clear. Uvula midline. Posterior oropharyngeal erythema present. No pharyngeal swelling, oropharyngeal exudate or uvula swelling. Tonsils: No tonsillar abscesses. 1+ on the right. 2+ on the left. Eyes: Conjunctiva/sclera: Conjunctivae normal. Pupils: Pupils are equal, round, and reactive to light. Cardiovascular: Rate and Rhythm: Regular rhythm. Tachycardia present. Heart sounds: Normal heart sounds. Pulmonary: Effort: Pulmonary effort is normal. No tachypnea, accessory muscle usage or respiratory distress. Breath sounds: Normal breath sounds. No stridor. No wheezing or rales. Abdominal: Palpations: Abdomen is soft. Tenderness: There is no abdominal tenderness. Musculoskeletal: Cervical back: Normal range of motion and neck supple. No rigidity or tenderness. Lymphadenopathy: Cervical: No cervical adenopathy. Skin: General: Skin is warm and dry. Neurological: Mental Status: He is alert and oriented to person, place, and time. ASSESSMENT/PLAN: 1. Pharyngitis, unspecified etiology - ICD9: 462, ICD10: J02.9 - STREP A MOLECULAR (POC) - COVID WITH FLUA+B, ROUTINE Strep test positive. Patient diagnosed with pharyngitis. Will be placed on amoxicillin. Patient was educated on supportive therapies. Patient will follow up with primary care provider as needed. Patient was instructed to immediately proceed to emergency room for any new, worsening, or symptoms lasting longer than anticipated. The patient's clinical presentation is otherwise unremarkable at this time. Based on exam and clinical finding, the patient is stable for discharge. Plan of care was discussed with patient. Patient verbalizes understanding and agrees to plan of care. This note was generated using Vanilla Forums software. It may contain errors in wording, punctuation, or spelling. Jax Del Real APRN.MESERET documented in this encounter [facility] Evaluation note Note Date & Type Note Facility documented in this encounter [facility] Evaluation note Note Date & Type Note Facility documented in this encounter [facility] Summary Purpose Family History No Family History Records FoundNo Family History Records Found Advance Directives No Advanced Directives Records FoundNo Advanced Directives Records Found Additional Source Comments <item> Privacy Markings (unrecogniz ed section and content) Section Author: Leonora Cadet PROHIBITION ON REDISCLOSURE OF CONFIDENTIAL INFORMATION This notice accompanies a disclosure of information concerning a client made to you with the consent of such client. (unrecognized sect ion and content) No Status Records FoundNo Status Records Found INFORMATION SOURCE (unrecogn ized section and content) DATE CREATED AUTHOR AUTHOR'S ORGANBASIM ATION 06/18/2022 [facility] Source Comments (unrecognize d section and content) In the event this informatio n is protected by the Federal Confidentiality of Alcohol and Drug Abuse Patient Records regulations: The Federal rules restrict any use of the information to criminally investigate or prosecute any alcohol or drug abuse patient.[facility] the event this information is protected by the Federal Confidentiality of Alcohol and Drug Abuse Patient Records regulations: The Federal rules restrict any use of the information to criminally investigate or prosecute any alcohol or drug abuse patient.[facility] Reason for Visit (unrecogniz ed section and content) Reason Comments Sore Throat X1 week, strep expos ure Care Teams (unrecognized sec tion and content) General Farmworker Relationship Specialty Start Date End Date Adrien Tabares MD [address] [phone] PCP - General Family Medicine 05/13/22 FOR RECORDS PERTAINING TO PATIENTS WHO ARE OR HAVE BEEN ENROLLED IN A CHEMICAL DEPENDENCY/SUBSTANCEABUSE PROGRAM, SOME INFORMATION MAY BE OMITTED. This clinical summary was aggregated from multiple sources. Caution should be exercised in using it in the provision of clinical care. This summary normalizes information from multiple sources, and as a consequence, information in this document may materially change the coding, format and clinical context of patient data. In addition, data may be omitted in some cases. CLINICAL DECISIONS SHOULD BE BASED ON THE PRIMARY CLINICAL RECORDS. [facility] [employer] [facility]. provides no warranty or guarantee of the accuracy or completeness of information in this document.
[2023-09-10 15:16] LABS: Color, Urine Yellow (Yellow); Glucose, Dipstick Normal (Normal); Ketone-Dipstick Negative (Negative); Leukocyte Esterase-Dipstick Negative /ul (Negative); Nitrite-Dipstick Negative (Negative); Occult Blood-Urine Negative /ul (Negative); Protein-Dipstick Negative (Negative); Urine Bilirubin Dipstick Negative (Negative); Urine Clarity Clear (Clear); Urine Urobilinogen Normal (Normal)
[2023-09-10 15:17] LABS: Absolute Lymphocyte Count 3.13 X10^3/uL (0.83-4.51); Absolute Neutrophil Count 6.2 X10^3/uL (2.0-7.7); Basophil# 0.06 X10^3/uL; Basophil% 0.6 % (0-1); Eosinophil# 0.25 X10^3/uL; Eosinophils% 2.4 % (0-5); Hemoglobin 14.4 g/dL (13.0-16.5); Lymphocyte # 3.13 X10^3/ul (0.83-4.51); Lymphocyte % 30.1 % (19-41); Mean Corpuscular Hgb 28.6 pg (27.0-32.0); Mean Corpuscular Volume 89.5 fL (80-94); Monocyte# 0.76 X10^3/uL; Monocyte% 7.3 % (0-10); NRBC Flagged by Analyzer 0 % (0-5); Neutrophil # 6.17 X10^3/uL (2.7-7.7); Neutrophil % 59.2 % (47-70); Platelet Count 252 K/mm3 (150-450); RBC Distribution Width CV 13.7 % (11.6-14.6); RBC Distribution Width SD 44.8 fl (35.1-43.9); Red Blood Count 5.03 M/mm3 (4.6-6.2); White Blood Count 10.4 K/mm3 (4.4-11.0)
[2023-09-10 15:34] LABS: Erythrocyte Sedimentation Rate 6 mm/hr (0-20)
[2023-09-10 16:05] LABS: Hemoglobin A1c 5.8 % (3.8-5.6)
[2023-09-10 16:07] LABS: Vitamin B12 554 pg/mL (211-911)
[2023-09-10 16:16] LABS: ALB/GLOB Ratio 0.9 RATIO (0.9-2.4); AST(SGOT) 29 U/L (15-37); Alanine Aminotransfer ALT/SGPT 72 U/L (16-61); Albumin, Serum 3.6 g/dL (3.2-5.0); Alkaline Phosphatase 79 U/L (45-117); Anion Gap 5 (5-15); BUN 12 mg/dL (7-18); BUN/Creat Ratio 15.7 RATIO (10-20); Chloride 107 mmol/L (98-107); Creatinine, Serum 0.76 mg/dL (0.70-1.30); EST Glomerular Filtration Rate 116 mL/min (>60); Est Glom Filt Rate - Afr Amer 141 mL/min (>60); Glucose 85 mg/dL (74-106); Iron 64 ug/dL (65-175); Magnesium 2.2 mg/dL (1.6-2.6); Potassium 3.8 mmol/L (3.5-5.1); Protein, Total 7.6 g/dL (6.4-8.2); Sodium Level 140 mmol/L (136-145); Thyroid Stim Hormone (TSH) 0.79 uIU/mL (0.358-3.74)
== END | disposition home or self-care (01) ==
LOC: MFPLAB 13:46
PROVIDERS: PCP Family Medicine; Visit Provider Family Medicine
DX: I48.91 Unspecified atrial fibrillation (principal); R55 Syncope and collapse; R73.01 Impaired fasting glucose; R53.83 Other fatigue
CPT/HCPCS: 36415; 80053; 81001; 82306; 82607; 83036; 83540; 83735; 84403; 84443; 85025; 85652

== ENCOUNTER 2023-10-16 09:27 | Day surgery (SDC) | payer BC, SELFPAY ==
[2023-10-16 09:55] VITALS: BP 131/78; PULSE 63; RESP 18; TEMP 36.4; O2SAT 100; BMI 35.9
--- NOTE | 2023-10-16 09:56 | EKG12_ITS ---
Test Reason : PRE OP Blood Pressure : / mmHG Vent. Rate : 059 BPM Atrial Rate : 059 BPM P-R Int : 150 ms QRS Dur : 090 ms QT Int : 402 ms P-R-T Axes : 053 032 028 degrees QTc Int : 397 ms Sinus bradycardia Otherwise normal ECG No previous ECGs available Confirmed by INESSA COWART, TERI ([id number]), purchasing expeditor GIOVANNY RIOS ([id number]) on 10/17/2023 10:55:29 AM Referred By: Melina Rehman Confirmed By:TERI WYLIE MD
[2023-10-16] MEDS: Lactated Ringers 1,000 ML 15 ML IV (10:08)
--- OUTSIDE RECORDS SUMMARY | 2023-10-16 10:11 | XMS RPT_ITS | CCD ---
Author Name Unknown Address [address] [place] [address] Organization [facility] Care Team Providers Care Surface Grinder Tender Name Role Phone Jimmie Tabares Unavailable [phone] Keira Orozco Unavailable Unavailable Hina COWART, Adrien [...] 10:58-0400 Body temperature 98.2 [degF] Nafisa Welch APRN.TIMBER MILL WORKER Work Phone: [facility] 06-16-2022 10:58-0400 Body weight 117.48 kg Nafisa Welch APRN.TIMBER MILL WORKER Work Phone: [facility] 06-16-2022 10:58-0400 Diastolic blood pressure 92 mm[Hg] Nafisa Welch APRN.TIMBER MILL WORKER Work Phone: [facility] 06-16-2022 10:58-0400 Heart rate 81 /min Nafisa Welch APRN.TIMBER MILL WORKER Work Phone: [facility] 06-16-2022 10:58-0400 Respiratory rate 20 /min Nafisa Welch APRN.TIMBER MILL WORKER Work Phone: [facility] 06-16-2022 10:58-0400 SaO2% (BldA) [Mass fraction] 98 % Nafisa Welch APRN.TIMBER MILL WORKER Work Phone: [facility] 06-16-2022 10:58-0400 Systolic blood pressure 146 mm[Hg] Nafisa Welch BUSINESS DEVELOPMENT COORDINATOR.TIMBER MILL WORKER Work Phone: [facility] 05-13-2022 17:04-0400 Body temperature 102.79 [degF] Jax Del Real BUSINESS DEVELOPMENT COORDINATOR.TIMBER MILL WORKER Work Phone: [facility] 05-13-2022 17:04-0400 Body weight 116.12 kg Jax Del Real BUSINESS DEVELOPMENT COORDINATOR.TIMBER MILL WORKER Work Phone: [facility] 05-13-2022 17:04-0400 Diastolic blood pressure 84 mm[Hg] Jax Del Real BUSINESS DEVELOPMENT COORDINATOR.TIMBER MILL WORKER Work Phone: [facility] 05-13-2022 17:04-0400 Heart rate 120 /min Jax Del Real BUSINESS DEVELOPMENT COORDINATOR.TIMBER MILL WORKER Work Phone: [facility] 05-13-2022 17:04-0400 Respiratory rate 18 /min Jax Del Real BUSINESS DEVELOPMENT COORDINATOR.TIMBER MILL WORKER Work Phone: [facility] 05-13-2022 17:04-0400 SaO2% (BldA) [Mass fraction] 99 % Jax Del Real APRN.MESERET Work Phone: [facility] 05-13-2022 17:04-0400 Systolic blood pressure 126 mm[Hg] Jax Del Real APRN.CNP Work Phone: [facility] Encounters Encounter Date Encounter Type Care Provider Facility Start: 06-16-2022 End: 06-16-2022 ambulatory [facility] Facility:[facility] Start: 06-16-2022 End: 06-16-2022 Patient encounter procedure Nafisa Welch APRN.MESERET Work Phone: [facility] Procedures Date Procedure Procedure Detail Performing Clinician Start: 06-16-2022 STREP A MOLECULAR (POC) Nafisa Welch APRN.CNP Work Phone: Start: 05-13-2022 STREP A MOLECULAR (POC) Jax Del Real APRN.CNP Work Phone: Plan of Treatment Date Care Activity Detail Author Start: 04-25-2022 Influenza vaccination INFLUENZA (#1) [facility] Start: 08-25-2021 DEPRESSION ASSESSMENT DEPRESSION ASS ESSMENT [facility] Start: 2021 COLOGUARD (FIT-DNA) COLOGUARD (FIT-D NA) [facility] Start: 2021 Colonoscopy COLONOSCOPY [facility] Start: 2021 COLORECTAL CANCER SCREENING COLORECTAL CANCER SCREENING [facility] Start: [address] [facility] Start: 2021 DIABETES SCREEN DIABETES SCREEN [facility] Start: 2021 FECAL OCCULT BLOOD FECAL OCCULT BLOO D [facility] Start: 2021 SIGMOIDOSCOPY SIGMOIDOSCOPY [facility] Start: 12-30-2020 COVID-19 VACCINE (2 - Booster for [place] series) COVID-19 VACCINE (2 - Booster for [place] series) [facility] Start: 2011 LIPID SCREEN LIPID SCREEN [facility] Start: 1995 Urine microalbumin profile DTAP,TDAP ,TD (1 - Tdap) [facility] Start: 1994 HEPATITIS C SCREENING HEPATITIS C SC PINKY [facility] Start: 1994 HIV SCREENING HIV SCREENING [facility] Start: 1988 Adult depression scr eening assessment DEPRESSION SCREENING [facility] Start: 1976 HEPATITIS B (1 of 3 - 3-dose series) HEPATITIS B (1 of 3 - 3-dose series) [facility] Payers Date Payer Category Payer Unknown 2020 Unknown [id number] Social History Date Type Detail Facility [facility] Tobacco smoking consumption unknown [facility] Start: 05-13-2022 Tobacco smoking status NHIS Never smoked tobacco [facility] Start: 05-13-2022 Tobacco use and exposure Smokeless tobacco non-user [facility] Start: 1975 Sex Assigned At Not on file [facility] Start: 05-03-2022 End: 06-16-2022 Exposure to SARS-CoV-2 (event) Not sure [facility] Work Phone: Progress note 06-16-2022 Note Date & Type Note Facility 06-16-2022 Note HNO ID: [id number] Author: Nafisa Welch APRN.TIMBER MILL WORKER Service: ? Author Type: Nurse Practitioner Type: Progress Notes Filed: 06/16/2022 11:16 AM Note Text: CC: Patient presents with: Sore Throat: X1 week, strep exposure HPI: Mya Clayton is a 47 year old male who [...] Patient agreeable to treatment plan. Nafisa Welch APRN.[facility] Instructions 06-16-2022 Patient Instructions Note Date & Type Note [facility] 06-16-2022 Instructions Nafisa Welch APRN.[facility] - 06/16/2022 11:11 AM EDT Ear Infection [...] but need treatment. documented in this encounter [facility] History of Present illness Narrative 06-16-2022 Nafisa Welch APRN.MESERET - 06/16/2022 11:01 AM EDT Note Date & Type Note Facility 06-16-2022 History of Presen t illness Narrative CC: Patient presents with: Sore Throat: X1 week, strep exposure HPI: Mya Clayton is a 47 year old male who [...] Nafisa Welch APRN.MESERET documented in this encounter [facility] Progress note 05-13-2022 Note Date & Type Note Facility 05-13-2022 Note HNO ID: [id number] Author: Jax Del Real APRN.CNP Service: ? [...] ear normal. Nose: Congestion present. Mouth/Throat: Lips: [place]. Mouth: Mucous membranes are moist. Pharynx: Oropharynx [...] of care. This note was generated using Hyperpot software. It may contain errors in wording, punctuation, or spelling. Jax Del Real APRN.MESERET [facility] Instructions 05-13-2022 Patient Instructions Note Date [...] concerning to you. documented in this encounter [facility] History of Present illness Narrative 05-13-2022 Jax [...] ear normal. Nose: Congestion present. Mouth/Throat: Lips: [place]. Mouth: Mucous membranes are moist. Pharynx: Oropharynx [...] of care. This note was generated using Hyperpot software. It may contain errors in wording, punctuation, or spelling. Jax Del Real APRN.MESERET documented in this encounter [facility] Evaluation note Note Date & Type Note Facility documented in this encounter [facility] Evaluation note Note Date & Type Note Facility documented in this encounter [facility] Summary Purpose Family History No Family History [...] DATE CREATED AUTHOR AUTHOR'S ORGANBASIM ATION 06/18/2022 [facility] Source Comments (unrecognize d section and content) In the event this informatio n is protected by the Federal Confidentiality of Alcohol and Drug Abuse Patient Records regulations: The Federal rules restrict any use of the information to criminally investigate or prosecute any alcohol or drug abuse patient.[facility] the event this information is protected by the Federal Confidentiality of Alcohol and Drug Abuse Patient Records regulations: The Federal rules restrict any use of the information to criminally investigate or prosecute any alcohol or drug abuse patient.[facility] Reason for Visit (unrecogniz ed section and content) Reason Comments Sore Throat X1 week, strep expos ure Care Teams (unrecognized sec tion and content) Surface Grinder Tender Relationship Specialty Start Date End Date Adrien Tabares MD [address] [phone] PCP - General Family Medicine 05/13/22 FOR [...] BE BASED ON THE PRIMARY CLINICAL RECORDS. [facility] [employer] [facility]. provides no warranty or guarantee of the accuracy or completeness of information in this document.
--- NOTE | 2023-10-16 10:24 | HP.PCM_ITS ---
History and Physical Date of Admission: 10/16/23 Date of Service: 09/17/23 MR#: [id number] Acct: [id number] Name: MYA JENKINS Rep #: [id number] : 1975 Provider: Dr. Melina Rehman MD Age/Sex: 48/M Location: [facility] Status: Signed Intake Vital Signs 09/09/2307:03 09/17/2412:24 Height 5 ft 11 in 5 ft 11 in Weight: 268 lb 8 oz BMI 37.4 BP 137/75 H Blood Pressure Location Rt brachial Position Sitting Respiration 17 Pulse 64 Pulse Source Monitor Temp 97.8 F Temp Source Temporal Pulse Oximetry (%) 99 Oxygen Delivery Method room air Intake Visit Reasons: UMBILICAL HERNIA Chief Complaint: umbilical hernia Private Wealth Advisor Required: No Is patient in pain?: No Allergies No Known Allergies Allergy (Verified 09/17/23 13:25) Medications lisinopril 10 mg tablet 10 mg PO QHS 07/15/20 [History Confirmed 09/17/23] metoprolol tartrate 25 mg tablet 25 mg PO DAILY 07/15/20 [History Confirmed 09/17/23] aspirin 81 mg tablet,delayed release 81 mg PO DAILY 07/16/22 [History Confirmed 09/17/23] cholecalciferol (vitamin D3) 50 mcg (2,000 unit) capsule 50 mcg PO DAILY 07/16/22 [History Confirmed 09/17/23] [facility] Medical History Afib Alcohol use Back pain Cardiology follow-up encounter CPAP (continuous positive airway pressure) dependence History of echocardiogram History of edema HTN (hypertension) Reducible umbilical hernia Shortness of breath on exertion Syncope Vertigo Wears glasses Surgical History History of wisdom tooth extraction Personal history of prior ablation treatment Family History Grandfather Prostate cancer Skin cancer Myocardial infarctionFather History of mitral valve repair Afib DiabetesMother Arrhythmia Arthritis Social History (Updated 09/17/23 @ 13:24 by Kassy Palacios LPN) household members: spouse 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 Patient states she has had for 6 or 7 years states has gotten larger does have a bulge. Patient does not try to reduce but states his PCP was able to reduce in 6 months ago. Patient states it can be tender with pressure but denies any pain when it is not being pressed. Patient does work in a factory and on the farm. Patient denies any nausea or vomiting or current abdominal pain. ROS Skin Skin: Yes changing moles Musc Musculoskeletal: Yes back problems Cardio Cardiovascular: Yes atrial fibrillation and high blood pressure Resp Respiratory: Yes sleep apnea Exam Const General: cooperative, healthy appearing, comfortable and no acute distress HENMT Head: normocephalic and atraumatic Neck Neck: supple Resp Effort & Inspection: normal respiratory effort Cardio Rate: regular rate GI Inspection: non-distended Palpation: soft, hernia umbilical (Incarcerated about 2 cm of likely adipose tissue in the hernia) and nontender Skin General: no rashes or lesions noted Neuro General: CN's II-XI intact bilaterally Extrem General: normal to inspection Psych Mental Status: mental status grossly normal Attitude: cooperative Assessment and Plan Assessment and Plan (1) Incarcerated umbilical hernia: Status: Acute Plan Patient will hold aspirin 5 days prior to procedure. Patient was just concerned getting this done prior to November/springtime farm planting Plan to do an incarcerated umbilical hernia repair with mesh. Reviewed the procedure with the patient including the risks, including but not limited to infection, bleeding, injury to the small bowel, and recurrence. All questions were answered. Melina Rehman M.D. Pager: [phone] [facility] [address] [place] [address], [facility], [address] [place] [address] Office: [phone] Coding Level of Care Code Off vis,est,level 3 Diagnoses Incarcerated umbilical hernia K42.0 09/17/23 1337 <Electronically signed by Melina Rehman MD> Date Melina Rehman MD
[2023-10-16] MEDS: Cefazolin 3 GM in 0.9% Normal Saline (100mL Bag) 100 ML IV (10:43)
[2023-10-16] MEDS: Bupivacaine Mpf 0.5% 30 ML VIAL (10:54)
--- NOTE | 2023-10-16 11:00 | HERN_PTH ---
PATHOLOGY RESULTS PATIENT: MYA JENKINS LOC: [facility] [place] [place] U#:[id number] AGE/SX: 48/M ROOM: RE10/16/[address]: Dr. Melina Rehman MD : 1975 BED: DIS: 10/16/2023 SPEC #: [id number] RECD: 10/16/23 13:18 STATUS: SAVANNA CHELSEA #: [id number] JUAN: 10/16/23 11:[address]: Melina Rehman DEPT: SURGICAL PATHOLOGY RECD BY: Lili Coley ENTERED: 10/16/23 13:18 SP TYPE: Hernia OTHR DR: Dr. Jimmie Santamaria MD Tissues: HERNIA Procedures: Surgery Specimen Level II HEADER OPERATION: Hernia, open umbilical repair with mesh PRE-OP DIAGNOSIS: Incarcerated umbilical hernia TISSUE SUBMITTED: Umbilical hernia sac MICROSCOPIC DIAGNOSIS Umbilical hernia sac, herniorrhaphy: Fibrosis and minimal chronic inflammation. AM:keven 10/17/2023 MICROSCOPIC DESCRIPTION Slides are reviewed. GROSS DESCRIPTION Received in fixative is one container labeled with the patient's name and designated umbilical hernia sac. The specimen consists of a piece of pink soft tissue measuring 3.5 x 1.0 x 0.5 cm. No mass lesion is identified. The entire specimen is submitted in one cassette. / SJ:rg 10/16/2023 TC:3 CPT: 43087
--- NOTE | 2023-10-16 11:29 | PCM.OPRPT ---
Report of Operation Date of Procedure: 10/16/23 Pre-Operative Diagnosis: Incarcerated umbilical hernia Post-Operative Diagnosis: Same Surgery/Procedure Performed:: Open incarcerated umbilical hernia repair with mesh Surgeon: Melina Rehman business job titles: [employer] Type of Anesthesia: General/Supplemental Anesthesiologist: Mikhail Torres Special Medications: Ancef 3 g IV x 1 Specimen's removed: Hernia sac Estimated Blood Loss (mL): <10 cc Description of Procedure: Patient was brought into the room placed supine on the operating table. Correct patient, procedure, site, positioning, special, was verified prior to procedure. General anesthesia was induced. The abdomen was prepped draped in usual sterile fashion. A curvilinear incision was made below the umbilicus with a 15 blade scalpel. This was deepened with electrocautery. A hemostat was used to go around the stalk of the umbilicus and Metzenbaum scissors was used to carefully divide the hernia sac from the skin of the umbilicus. Incarcerated omentum was viable and reduced back in the abdomen. The fascia around the hernia defect was cleared and the hernia defect measured 1.2 x 1.2 cm. A small Ventralex ST hernia patch was used and secured laterally at the tails with 0 Prolene mattress sutures. 0 Prolene suture was placed to close the fascia in a [id number] including the mesh inferiorly and superiorly. The wound was irrigated with saline. Hemostasis was assured. The skin of the umbilicus was secured to the fascia using 3-0 Vicryl suture interrupted. The incision was closed with 3-0 Vicryl subdermal interrupted sutures and the skin was closed with interrupted 4-0 Monocryl sutures. Steri-Strips and Tegaderm and OpSite were placed over the incision once sterile cotton balls were placed in the umbilicus. Patient was extubated. Patient tolerated procedure well and was taken to the postanesthesia care unit in stable condition. Grafts/Implants Used: Ventralex ST hernia patch 4.3 cm Lot [id number] Complications none
--- NOTE | 2023-10-16 11:31 | DCINST_ITS ---
Discharge Instructions Diet Discharge Diet: Light diet - advance as tolerated Activity May shower in (days): 5 (Keep umbilical dressing clean dry and intact for 5 days. Okay to tape off with a Ziploc bag to shower. Or lower shower and upper sponge bath.) Lifting Restrictions: no lifting >20 lbs x 2 wks, no strenuous exercise for 4 wks Additional Activity Instructions:: - Dressing / Incision Call your doctor if your incision/area has: Continuous Slow Oozing, Sudden Increased Bleeding, Increased Pain/ Swelling, Increased Redness, Foul Smelling Discharge and Swelling at the incision site Call your doctor if you observe: Fever of 101 or Higher Remove Dressing in: 5 days (After 5 days okay to remove surgical dressing. Place cotton ball or rolled up gauze in bellybutton and retape daily for 2 more days.) Cleanse incision/area with: Do not get Incision Wet (for 5 days) Additional Dressing/Incision Instructions:: Steri-Strips will fall off in 7 to 10 days, if they do not fall off okay to remove after 10 days. Follow Up Care Please Follow Up With: Melina Rehman MD When: Call the office for a follow-up appointment 2 weeks; after 5 PM and on the weekends call [phone] with any concerns. Test Results: Test results from this visit will be discussed in further detail at your follow- up appointment, if applicable. Discharge Plan Admission Attending Provider: Melina Rehman Primary Care Provider: Lazaro Santamaria Discharge Orders/Prescriptions Prescriptions: New oxycodone-acetaminophen 5-325 mg tablet 1 - 2 tab PO Q6H PRN (Reason: pain) 3 Days Qty: 14 0RF Continued cholecalciferol (vitamin D3) 50 mcg (2,000 unit) capsule 50 mcg PO DAILY lisinopril 10 MG tablet 10 mg PO QHS metoprolol tartrate 25 MG tablet 25 mg PO DAILY guaifenesin [Mucinex] 600 mg tablet extended release 12hr 600 mg PO BID PRN (Reason: allergies) Held aspirin 81 mg tablet,delayed release (DR/EC) 81 mg PO DAILY Hold Instructions: Resume on 10/19/23. Referrals / Follow Up: Lazaro Santamaria MD [Primary Care Provider] - Disposition Disposition (needs filled in before D/C Order can be placed): Home, Self Care
[2023-10-16 11:47] VITALS: BP 120/75; BP 131/78; PULSE 76; RESP 16; TEMP 36.1; O2SAT 94
[2023-10-16 11:50] VITALS: BP 118/72; BP 131/78; PULSE 80; RESP 16; O2SAT 93
[2023-10-16 11:55] VITALS: BP 121/76; BP 131/78; PULSE 79; RESP 16; O2SAT 93
[2023-10-16 12:00] VITALS: BP 111/92; BP 131/78; PULSE 75; RESP 16; TEMP 36.5; O2SAT 94
[2023-10-16 13:03] VITALS: BP 131/78; BP 144/84; PULSE 59; RESP 16; TEMP 36.1; O2SAT 94
== END 2023-10-16 13:19 | disposition home or self-care (01) ==
LOC: SDC 09:29 → AC 09:37
PROVIDERS: PCP Family Medicine; Referring Provider Surgery; Visit Provider Surgery
PROC: (CPT 49592; principal; 2023-10-16 10:45)
DX: K42.0 Umbilical hernia with obstruction, without gangrene (principal); I10 Essential (primary) hypertension; Z79.82 Long term (current) use of aspirin; Z79.899 Other long term (current) drug therapy
CPT/HCPCS: 49592; 00830; 88302; 93005; J7120; C1781; J2405

== ENCOUNTER → 2024-10-07 | Outpatient (CLI) | payer BC, SELFPAY ==
[2024-10-07 17:56] LABS: Vitamin D,25 Hydroxy 38.9 ng/mL
[2024-10-07 17:57] LABS: ALB/GLOB Ratio 0.8 RATIO (0.9-2.4); AST(SGOT) 29 U/L (15-37); Alanine Aminotransfer ALT/SGPT 91 U/L (16-61); Albumin, Serum 3.5 g/dL (3.2-5.0); Alkaline Phosphatase 80 U/L (45-117); Anion Gap 6 (5-15); BUN 13 mg/dL (7-18); BUN/Creat Ratio 16.7 RATIO (10-20); Calcium,Total 9.3 mg/dL (8.5-10.1); Chloride 109 mmol/L (98-107); Creatinine, Serum 0.78 mg/dL (0.70-1.30); EST Glomerular Filtration Rate 113 mL/min (>60); Est Glom Filt Rate - Afr Amer 137 mL/min (>60); Globulin 4.5 g/dL (2.2-4.2); Glucose 86 mg/dL (74-106); Potassium 4.1 mmol/L (3.5-5.1); Sodium Level 142 mmol/L (136-145)
== END | disposition home or self-care (01) ==
LOC: MFPLAB 13:37
PROVIDERS: PCP Family Medicine; Referring Provider Family Medicine; Visit Provider Family Medicine
DX: E55.9 Vitamin D deficiency, unspecified (principal); R79.89 Other specified abnormal findings of blood chemistry
CPT/HCPCS: 36415; 80053; 82306

== ENCOUNTER 2025-04-21 14:36 | Outpatient (CLI) | payer BC, SELFPAY ==
[2025-04-21 18:31] LABS: AST(SGOT) 26 U/L (<=37); Alanine Aminotransfer ALT/SGPT 61 U/L (<=46); Albumin, Serum 4.1 g/dL (3.5-5.0); Alkaline Phosphatase 82 U/L (40-129); Anion Gap 12 (5-15); BUN 16 mg/dL (4-19); BUN/Creat Ratio 19.1 RATIO (10-20); Calcium,Total 9.3 mg/dL (7.6-11.0); Carbon Dioxide 24.3 mmol/L (21.0-32.0); Chloride 104 mmol/L (98-108); Cholesterol 134 mg/dL (<=200); Globulin 3.5 g/dL (2.2-4.2); Glucose 88 mg/dL (70-99); Low Density Lipoprotein Calc. 79 mg/dL; Potassium 4.1 mmol/L (3.3-5.1); Triglycerides 57 mg/dL; Very Low Density Lipoprotein 11 mg/dL (5-40); Vitamin D,25 Hydroxy 42.8 ng/mL (30-100); cholesterol:hdl ratio screen 3.07
== END 2025-04-21 23:59 | disposition home or self-care (01) ==
LOC: MFPLAB 14:37
PROVIDERS: PCP Family Medicine; Referring Provider Family Medicine; Visit Provider Family Medicine
DX: R79.89 Other specified abnormal findings of blood chemistry (principal); R73.01 Impaired fasting glucose; E55.9 Vitamin D deficiency, unspecified
CPT/HCPCS: 36415; 80053; 80061; 82306